=== PATIENT | female | born 1935 | race Native Hawaiian/Other Pacific Islander ===

== ENCOUNTER 2022-04-18 10:46 | Outpatient (CLI) | payer OTHER, BC | END 2022-04-18 19:12 | disposition home or self-care (01) | LOC: CT 10:46 | PROVIDERS: ATTEND Orthopaedic Surgery | DX: Z01.812 Encounter for preprocedural laboratory examination (principal); Z96.642 Presence of left artificial hip joint; T84.84XA Pain due to internal orthopedic prosthetic devices, implants and grafts, initial encounter ==

== ENCOUNTER 2022-08-22 12:26 | Outpatient (CLI) | payer OTHER, BC | END 2022-08-22 23:25 | disposition home or self-care (01) | LOC: RAD 12:26 | PROVIDERS: ATTEND Podiatrist | DX: M79.662 Pain in left lower leg (principal) ==

== ENCOUNTER 2022-08-22 13:12 | Emergency (ER) | payer OTHER, BC ==
[~2022-08-22] VITALS: Ht 160 cm; Wt 40.4 kg
[2022-08-22 13:20] VITALS: TEMP 97.8
[2022-08-22 14:07] LABS: PLATELET COUNT 209 K/uL (152-353)
[2022-08-22 14:16] LABS: POTASSIUM 3.4 mmol/L (3.6-5.2)
[2022-08-22 15:49] VITALS: BP 178/88
== END 2022-08-22 15:55 | disposition home or self-care (01) ==
LOC: ED 13:12
PROVIDERS: Emergency Medicine Emergency Medical Services
DX: I82.492 Acute embolism and thrombosis of other specified deep vein of left lower extremity (principal)
CPT/HCPCS: 80053; 85027; 85610; 93005; 99284

== ENCOUNTER 2022-09-11 17:43 | Emergency (ER) | payer OTHER, BC ==
[~2022-09-11] VITALS: Ht 160 cm; Wt 39.0 kg
[2022-09-11 17:45] VITALS: TEMP 97.3
[2022-09-11 19:40] VITALS: BP 152/68
== END 2022-09-11 19:40 | disposition home or self-care (01) ==
LOC: ED 17:43
DX: S21.119A Laceration without foreign body of unspecified front wall of thorax without penetration into thoracic cavity, initial encounter (principal); S41.012A Laceration without foreign body of left shoulder, initial encounter; S61.215A Laceration without foreign body of left ring finger without damage to nail, initial encounter; W18.39XA Other fall on same level, initial encounter; Y92.090 Kitchen in other non-institutional residence as the place of occurrence of the external cause
CPT/HCPCS: 99283

== ENCOUNTER 2023-03-17 06:31 | Observation (INO) | payer OTHER, BC ==
[2023-03-17] VITALS (7 sets, daily range): BP systolic 152–220; BP diastolic 61–88; TEMP 97.4–98.2; Ht 160 cm; Wt 49.0 kg
[~2023-03-17] VITALS: Ht 160 cm; Wt 49.0 kg
[2023-03-17 07:29] LABS: PLATELET COUNT 209 K/uL (152-353)
[2023-03-17 07:55] LABS: POTASSIUM 3.5 mmol/L (3.6-5.2)
[2023-03-17] MEDS ORDERED: OMEP40CA PO (15:58)
[2023-03-17] MEDS ORDERED: ALENDRONATE35 MG PO (15:58)
[2023-03-17] MEDS ORDERED: CLOP75TA2 PO (15:59)
[2023-03-17] MEDS ORDERED: METO25TA2 PO (15:59)
[2023-03-17] MEDS ORDERED: DONE5TAB PO (16:00)
[2023-03-17] MEDS ORDERED: LEVO0.0218 PO (16:02)
[2023-03-17] MEDS ORDERED: DRIZALMA SPRINK20 MG PO (16:03)
[2023-03-17] MEDS ORDERED: LIPITOR80 MG PO (16:04)
[2023-03-17] MEDS ORDERED: GRALISE600 MG PO (16:05)
[2023-03-18] VITALS: BP 190/76; TEMP 98.1
[2023-03-18 04:00] VITALS: BP 183/77; TEMP 98.3
[2023-03-18 07:53] VITALS: BP 176/65; TEMP 97.7
[2023-03-18 12:00] VITALS: BP 139/74; TEMP 98
[2023-03-18] MEDS ORDERED: LISI10TA11 PO (12:26)
== END 2023-03-18 13:55 | disposition home or self-care (01) ==
LOC: ED 06:31 → MED/SURG 10:32
PROVIDERS: Emergency Medicine; ADMIT Internal Medicine; ATTEND Internal Medicine
DX: I16.0 Hypertensive urgency (principal); K59.09 Other constipation; R10.31 Right lower quadrant pain; M25.551 Pain in right hip; K21.9 Gastro-esophageal reflux disease without esophagitis; E03.8 Other specified hypothyroidism; G62.89 Other specified polyneuropathies; G30.8 Other Alzheimer's disease; F02.80 Dementia in other diseases classified elsewhere, unspecified severity, without behavioral disturbance, psychotic disturbance, mood disturbance, and anxiety; Z86.73 Personal history of transient ischemic attack (TIA), and cerebral infarction without residual deficits; Z48.00 Encounter for change or removal of nonsurgical wound dressing
CPT/HCPCS: 80053; 81002; 82150; 83690; 83880; 84484; 85027; 96360; 96361; 96372; 96374; 96375; 96376; 99221; 99284; G0378; J0360; J1650; J2270; J2405; J3490; Q9963

== ENCOUNTER 2023-07-09 12:45 | Outpatient (CLI) | payer OTHER, BC ==
[~2023-07-09] VITALS: Ht 165.1 cm; Wt 68.0 kg
[~2023-07-09 12:45] MED LIST: ALENDRONATE35 MG PO; CLOP75TA2 PO; DONE5TAB PO; DRIZALMA SPRINK20 MG PO; GRALISE600 MG PO; LEVO0.0218 PO; LIPITOR80 MG PO; LISI10TA11 PO; METO25TA2 PO; OMEP40CA PO
[2023-07-09 12:50] VITALS: BP 116/50; TEMP 98.2
== END 2023-07-09 18:56 | disposition home or self-care (01) ==
LOC: INF 12:45
PROVIDERS: ATTEND Internal Medicine
DX: M86.352 Chronic multifocal osteomyelitis, left femur (principal)
CPT/HCPCS: 96365; J0875

== ENCOUNTER 2023-07-25 09:57 | Outpatient (CLI) | payer OTHER, BC ==
[~2023-07-25] VITALS: Ht 154.9 cm; Wt 68.0 kg
[2023-07-25 10:05] VITALS: BP 105/40; TEMP 97.7
== END 2023-07-25 23:59 | disposition home or self-care (01) ==
LOC: INF 09:57
PROVIDERS: ATTEND Internal Medicine Endocrinology, Diabetes & Metabolism
DX: M86.352 Chronic multifocal osteomyelitis, left femur (principal)
CPT/HCPCS: 96365; J0875

== ENCOUNTER 2023-08-02 08:34 | Emergency (ER) | payer OTHER, BC ==
[~2023-08-02] VITALS: Ht 154.9 cm; Wt 46.3 kg
[2023-08-02 13:20] VITALS: BP 131/71; TEMP 97.9
== END 2023-08-02 13:20 | disposition home or self-care (01) ==
LOC: ED 08:34
DX: S50.811A Abrasion of right forearm, initial encounter (principal); S80.811A Abrasion, right lower leg, initial encounter; W01.0XXA Fall on same level from slipping, tripping and stumbling without subsequent striking against object, initial encounter; Y93.89 Activity, other specified; Y92.009 Unspecified place in unspecified non-institutional (private) residence as the place of occurrence of the external cause; Y99.9 Unspecified external cause status; M86.8X8 Other osteomyelitis, other site; F01.50 Vascular dementia, unspecified severity, without behavioral disturbance, psychotic disturbance, mood disturbance, and anxiety; E11.9 Type 2 diabetes mellitus without complications; I10 Essential (primary) hypertension; R53.81 Other malaise; E07.9 Disorder of thyroid, unspecified
CPT/HCPCS: 99283

== ENCOUNTER 2023-08-07 10:11 | Outpatient (CLI) | payer OTHER, BC ==
[~2023-08-07] VITALS: Ht 154.9 cm; Wt 68.0 kg
[2023-08-07 10:20] VITALS: BP 127/49; TEMP 97.7
[2023-08-07 11:37] VITALS: BP 137/56; TEMP 97.5
== END 2023-08-07 19:16 | disposition home or self-care (01) ==
LOC: INF 10:11
PROVIDERS: ATTEND Internal Medicine Endocrinology, Diabetes & Metabolism
DX: M86.352 Chronic multifocal osteomyelitis, left femur (principal)
CPT/HCPCS: 96365; J0875